=== PATIENT | female | born 1985 | race Caucasian/White ===

== ENCOUNTER 2017-10-10 07:53 | Emergency (ER) | payer OTHER ==
[~2017-10-10] VITALS: Ht 157.5 cm; Wt 77.1 kg
[~2017-10-10 07:53] MED LIST: ACIDO FOLICO; CEFTIN250 MG PO; EYE WASH SOLUT OP; KETO10TA2 PO; PHENERGAN25 MG PO; PRENATAL1 TAB; PYRIDIUM DS200 MG PO; TOBRADEX ST EYE5 ML OP
== END 2017-10-10 12:01 | disposition home or self-care (01) ==
LOC: ER 07:53
DX: N83.291 Other ovarian cyst, right side (principal)

== ENCOUNTER 2018-05-21 08:36 | Emergency (ER) | payer OTHER ==
[~2018-05-21] VITALS: Ht 154.9 cm; Wt 72.6 kg
== END 2018-05-21 13:54 | disposition home or self-care (01) ==
LOC: ER 08:36
DX: H66.92 Otitis media, unspecified, left ear (principal)